=== PATIENT | female | born 1945 | race African-American/Black ===

== ENCOUNTER 2016-04-28 16:07 | Emergency (ER) | payer MEDICAID, MEDICARE, OTHER ==
[2016-04-28 16:21] VITALS: BP 139/86; PULSE 107; RESP 18; O2SAT 98
--- NOTE | 2016-04-28 16:57 | ED.REPORT ---
HPI-Dyspnea / Wheezing Date of Service Apr 28, 2016 ED Provider: Chon Mustafa DO 71 year old female with a history of PE and HTN presents to the ER complaining of five days of shortness of breath, exacerbated by exertion. Associated symptoms include chills, nausea, malaise, and generalized weakness. Patient denies fever, and cough. Prior to arrival, she was taking a bus from [facility] to [place]. The bus broke down en route and she decided that she might as well come to the ER for her symptoms. She is a rambling and tangential historian. 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 GI: Reports: Nausea, Denies: Vomiting Neurologic: Denies: Headache Physical Exam Initial Vital Signs Vital Signs (First) Date Time Temp Pulse Resp B/P Pulse Ox O2 Delivery O2 Flow Rate FiO2 04/28/16 16:21 36.5 107 18 139/86 98 Room Air Initial VS: Reviewed Head / Eyes: Atraumatic, Normocephalic Abdomen / GI: Soft, Non-tender, No guarding, No rebound, No distention Extremities: Vascular intact, Neuro intact, No swelling, No tenderness Skin: Warm, Dry, No cyanosis Neurologic: Alert, Oriented, Nonfocal General/Constitutional: Awake, Alert, No acute distress, Well appearing, Well developed, Well nourished Neck: Atraumatic, Supple, No meningismus, Full range of motion, No swelling, Non-tender, No masses Respiratory / Chest: Breath sounds NL, Breath sounds = bilat, No respiratory distress, No rales, No rhonchi, No wheezing, No retractions, No stridor Cardiovascular: Heart rate NL, Regular rhythm, Heart sounds NL, Cap refill not delayed, Peripheral circulation NL Psychiatric: Affect NL, Mood NL, Not suicidal, Not homicidal Tangential. Interpretation & Diagnostics Lab Results Interpretation Result Diagram: 04/28/16 1708 04/28/16 1708 Test 04/28/16 17:08 White Blood Count 5.5th/mm3 (3.8-10.1) Red Blood Count 4.11mil/mm3 (3.90-5.20) Hemoglobin 12.2g/dL (12.0-15.6) Hematocrit 37.3% (35.0-46.0) Mean Corpuscular Volume 90.8fL (81-100) Mean Corpuscular Hemoglobin 29.7pg (27.0-35.0) Mean Corpuscular Hemoglobin Concent 32.7% (32.0-37.0) Red Cell Distribution Width 13.3% (12.3-15.4) Platelet Count 286bil/L (150-400) Neutrophils (%) (Auto) 69.5% (40-74) Lymphocytes (%) (Auto) 19.0% (14-46) Monocytes (%) (Auto) 10.6% (4-12) Eosinophils (%) (Auto) 0.7% (0-5) Basophils (%) (Auto) 0% (0-3) Sodium Level 138mEq/L (134-144) Potassium Level 3.2mEq/L (3.5-5.2) Chloride Level 99mEq/L (97-108) Carbon Dioxide Level 24mmol/L (18-29) Blood Urea Nitrogen 16mg/dL (8-27) Creatinine 0.67mg/dL (0.57-1.00) Estimat Glomerular Filtration Rate 112mL/min (>59) Glucose Level 96mg/dL (60-99) Calcium Level 8.0mg/dL (8.5-10.1) Magnesium Level 1.5mg/dL (1.6-2.6) Total Bilirubin 0.8mg/dL (0.0-1.2) Aspartate Amino Transf (AST/SGOT) 19U/L (0-50) Alanine Aminotransferase (ALT/SGPT) 12U/L (0-32) Alkaline Phosphatase 80U/L (25-165) Troponin T < 0.010ug/L (0.0-0.011) Pro-B-Type Natriuretic Peptide 223.3pg/mL (0-301) Total Protein 6.3g/dL (6.4-8.4) Albumin 3.6g/dL (3.4-5.0) ECG Interpretation ECG Interpretation: Sinus rhythm, rate 85 Left axis deviation Time: 17:48 Interpreted by: ED physician Re-Eval/Medical Decision Med Decision/Clinical Course Patient has moderate to severe concern for pulmonary embolism regarding her shortness of breath, currently awaiting CT angiography of the chest. Care transferred to Dr. Kingsley Source of Hx: Old records Discharge & Departure Shift Change Sign-Out Patient Care Transferred: Yes Discussed Complaint(s): Yes Discharge Condition All VS Reviewed: Yes Care Transferred to: Dr. Christianson Care Transferred at: 18:05 Darron Attestation Portions of this note were transcribed by Pascual Chavez. I, Dr. Mustafa, personally performed the history, physical exam and medical decision-making; I reviewed and confirmed the accuracy of the information in the transcribed note. Signed by: Darron Donovan, 04/28/2016 and 18:05 Chon Mustafa DO Apr 28, 2016 16:57 PASCUAL CHAVEZ Apr 28, 2016 16:59
[2016-04-28] MEDS ORDERED: Ondansetron 2 mg/mL 2 mL Inj IVPUSH ONE (17:10)
[2016-04-28 17:22] LABS: BASOPHILS % (AUTO) 0 % (0-3); EOSINOPHILS % (AUTO) 0.7 % (0-5); MONOCYTES % (AUTO) 10.6 % (4-12); Mean Corpuscular Hemoglobin 29.7 pg (27.0-35.0); Mean Corpuscular Volume 90.8 fL (81-100); NEUTROPHILS % (AUTO) 69.5 % (40-74); Platelet Count 286 bil/L (150-400)
[2016-04-28 17:57] LABS: Magnesium 1.5 mg/dL (1.6-2.6); TROPONIN T < 0.010 ug/L (0.0-0.011)
[2016-04-28] MEDS ORDERED: Magnesium Sulf 2 Gm/50mL Water 2 GM in IV Premix 1 EACH IV ONE (18:05)
[2016-04-28 18:27] VITALS: BP 97/62; PULSE 78; RESP 18; O2SAT 94
--- NOTE | 2016-04-28 18:44 | DRSVH ---
PROCEDURE: X-RAY CHEST ONE VIEW, PORTABLE ([id number]) INDICATIONS: dyspnea TECHNIQUE: One view of the chest was acquired. COMPARISON: None. FINDINGS: Surgical changes and devices: None. Lungs and pleura: No pleural effusions or pneumothorax. Lungs are clear. The left lung base is poo rly characterized given scoliotic deformity and cardiomegaly. Mediastinum: Mediastinum is grossly normal. The heart is mildly enlarged. There is a large gas-filled hiatal hernia. Bones and chest wall: There is marked rightward curvature of the thoracic spine. Bones are otherwise unremarkable. IMPRESSION: 1. No acute cardiac pulmonary findings. 2. Mild cardiomegaly. 3. Gas-filled hiatal hernia. Dictated by: Fang Thomas M.D. on 04/28/2016 at 18:42 Approved by: Fang Thomas M.D. on 04/28/2016 at 18:43
--- NOTE | 2016-04-28 19:12 | DRSVH ---
PROCEDURE: CT ANGIO CHEST PULMONARY EMBOLISM ([id number]) INDICATIONS: dyspnea, tachycardia, h/o PE TECHNIQUE: After the administration of intravenous contrast, 2 mm thick sections acquired from the pulmonary api mateo to the posterior costophrenic angles. 3-dimensional maximum intensity projection (MIP) coronal a nd sagittal reformats were then acquired through the thorax. For radiation dose reduction, the follo wing was used: automated exposure control, adjustment of mA and/or kV according to patient size. COMPARISON: [facility], CR, XR CHEST 1VW (PORTABLE), 04/28/2016, 18:07. FINDINGS: Image quality: Excellent. Pulmonary arteries: Pulmonary arteries are normal in size, and demonstrate no intraluminal filling d efects to suggest central pulmonary embolism. Lungs and pleura: Lungs are clear. No pleural effusions or pneumothorax. Central and peripheral ai rways are patent. Mediastinum: Heart size is normal, without pericardial effusion. No mediastinal or hilar adenopathy . Thoracic aorta is normal in caliber and enhancement. Esophagus is normal in caliber. There is a l arge hiatal hernia. Bones and chest wall: No suspicious bony lesions. Ribs and thoracic spine appear intact throughout. Thyroid gland is grossly unremarkable. No axillary or supraclavicular adenopathy. Abdomen: There are multiple partially visualized dilated small bowel loops, some of which have solid appearing stool within. Stool is visualized within the hepatic flexure of the colon. Abdominal organs are otherwise grossly unremarkable on this limited view. IMPRESSION: 1. No acute pulmonary embolus. 2. Large hiatal hernia. 3. Partially visualized dilated loops of small bowel, some of which demonstrate small bowel stool sig ns suggesting slow transit or obstruction. Stool is also visualized at the hepatic flexure within the colon favoring slow transit. Dictated by: Fang Thomas M.D. on 04/28/2016 at 19:07 Approved by: Fang Thomas M.D. on 04/28/2016 at 19:10
[2016-04-28 19:56] VITALS: BP 99/64; PULSE 79; RESP 16; O2SAT 93
== END 2016-04-28 19:57 | disposition home or self-care (01) ==
LOC: SED 16:07
DX: R06.00 Dyspnea, unspecified (principal); K44.9 Diaphragmatic hernia without obstruction or gangrene; I10 Essential (primary) hypertension; Z86.711 Personal history of pulmonary embolism; Z88.2 Allergy status to sulfonamides
CPT/HCPCS: 36415; 71010; 71275; 80053; 83735; 83880; 84484; 85025; 93005; 96374; 96375; 99285; J2405; Q9967